=== PATIENT | female | born 2000 | race Caucasian/White ===

== ENCOUNTER 2022-11-23 15:00 | Emergency (ER) | payer OTHER ==
[~2022-11-23] VITALS: Ht 162.6 cm; Wt 57.6 kg
[2022-11-23] MEDS ORDERED: VRAYLAR3 MG PO (15:50)
[2022-11-23] MEDS ORDERED: DEXT10ER PO (15:50)
== END 2022-11-23 15:52 | disposition home or self-care (01) ==
LOC: ER 15:00
DX: Z76.0 Encounter for issue of repeat prescription (principal); Z87.891 Personal history of nicotine dependence
CPT/HCPCS: 99281

== ENCOUNTER 2023-03-14 15:43 | Emergency (ER) | payer OTHER ==
[~2023-03-14] VITALS: Ht 162.6 cm; Wt 59.0 kg
[~2023-03-14 15:43] MED LIST: DEXT10ER PO; VRAYLAR3 MG PO
[2023-03-14 15:47] VITALS: BP 140/86
[2023-03-14] MEDS ORDERED: DEXTROAMPHETAMI10 M1 PO (15:55)
[2023-03-14] MEDS ORDERED: VRAYLAR3 MG PO (15:55)
== END 2023-03-14 15:52 | disposition home or self-care (01) ==
LOC: ER 15:43
DX: Z76.0 Encounter for issue of repeat prescription (principal)
CPT/HCPCS: 99281